=== PATIENT | male | born 1975 | race Caucasian/White ===

== ENCOUNTER 2019-11-13 12:26 | Emergency (ER) | payer OTHER ==
[~2019-11-13] VITALS: Ht 182.9 cm; Wt 86.2 kg
[2019-11-13] MEDS ORDERED: CLARITIN5 MG/5 ML PO (12:42)
[2019-11-13] MEDS ORDERED: MONTELUKAST SODI4 M1 PO (12:42)
[2019-11-13] MEDS ORDERED: ONDANSETRON HCL4 M2 PO (14:21)
[2019-11-13] MEDS ORDERED: TRANSDERM-SCOP1 EACH TRANSDERM (14:21)
[2019-11-13 14:37] VITALS: BP 132/89
== END 2019-11-13 14:38 | disposition home or self-care (01) ==
LOC: M.ERS 12:26
DX: S06.0X1A Concussion with loss of consciousness of 30 minutes or less, initial encounter (principal); W22.8XXA Striking against or struck by other objects, initial encounter; Y93.64 Activity, baseball; Y92.89 Other specified places as the place of occurrence of the external cause; Y99.8 Other external cause status